=== PATIENT | male | born 1950 | race Caucasian/White ===

== ENCOUNTER 2019-04-21 13:36 | Emergency (ER) | payer MEDICARE ==
[2019-04-21] MEDS ORDERED: BABY ASPIRIN 81 MG CHEW PO ONE (13:46)
[2019-04-21] MEDS ORDERED: Zofran 4 MG/2 ML VIAL IV ONE (13:46)
[2019-04-21] MEDS ORDERED: SUBLIMAZE 100 MCG/2 ML IV ONE (13:47)
[2019-04-21] MEDS ORDERED: SUBLIMAZE 100 MCG/2 ML ONE (13:47)
[2019-04-21] MEDS ORDERED: Heparin 5000 UNITS/0.5 ML (HIGH RISK MED) IV ONE (13:49)
[2019-04-21] MEDS ORDERED: Zofran 4 MG/2 ML VIAL ONE (13:55)
--- NOTE | 2019-04-21 13:56 | ERPHSYRPT ---
- History of Present Illness Historian: patient Exam Limitations: no limitations Timing/Duration: today, hour(s) (2) Activities at Onset: none Quality: pressure, tightness Location: central, other Chest Pain Radiation: neck Severity of Pain-Max: severe Severity of Pain-Current: severe Modifying Factors: Improves With: nothing Associated Symptoms: nausea, No vomiting, No palpitations, No heartburn, No abdominal pain, No shortness of breath, No cough, No hurts to breathe, No diaphoresis, No chills, No fever, No fatigue, No weakness, No swelling/lump in chest, No syncope, No rash, No headache, No dizziness, No edema, No back pain Prior Chest Pain/Cardiac Workup: no prior chest pain, no prior cardiac workup Nitro Today/Relief: no nitro taken today Aspirin Treatment Today: no aspirin today - Review of Systems Constitutional: No Fever, No Chills Eyes: No Vision Changes, No Double Vision Ears, Nose, & Throat: No Mouth Pain, No Throat Swelling Respiratory: No Cough, No Dyspnea Cardiac: Chest Pain, No Edema, No Syncope Abdominal/Gastrointestinal: No Abdominal Pain, No Nausea, No Vomiting, No Diarrhea Genitourinary Symptoms: No Dysuria Musculoskeletal: No Back Pain, No Neck Pain Skin: No Rash Neurological: No Dizziness, No Focal Weakness, No Sensory Changes Psychological: No Symptoms Endocrine: No Symptoms Hematologic/Lymphatic: No Easy Bleeding, No Easy Bruising All Other Systems: Reviewed and Negative - Physical Exam General Appearance: no apparent distress, alert Eye Exam: PERRL/EOMI, eyes nml inspection Ears, Nose, Throat Exam: normal ENT inspection, moist mucous membranes Neck Exam: normal inspection, non-tender, supple, full range of motion Respiratory Exam: normal breath sounds, lungs clear, No respiratory distress, No diminished breath sounds, No accessory muscle use Cardiovascular Exam: regular rate/rhythm, normal heart sounds, normal peripheral pulses, No murmur Gastrointestinal/Abdomen Exam: soft, No tenderness, No mass, No pulsatile mass, No rebound Back Exam: normal inspection, No CVA tenderness, No vertebral tenderness Extremity Exam: normal inspection, normal range of motion Neurologic Exam: alert, oriented x 3, cooperative, normal mood/affect, sensation nml, No motor deficits Skin Exam: normal color, warm, dry Lymphatic Exam: No adenopathy SpO2 Interpretation: normal O2 Delivery: Room Air - Course Nursing assessment & vital signs reviewed: Yes EKG Interpreted by Me: RATE, ST Elev Rhythm Strip: Rate, Normal Sinus Rhythm Ordered Tests: Active Orders 24 hr Category Date Time Status Accucheck STAT Care 04/21/19 13:46 Active Rate Engineer STAT Care 04/21/19 13:47 Active EKG-ER Only STAT Care 04/21/19 13:46 Active IV Insertion STAT Care 04/21/19 13:46 Active IV Insertion-2nd Peripheral STAT Care 04/21/19 13:46 Active NPO (ED) STAT Care 04/21/19 13:46 Active Re-Check Vital Signs STAT Care 04/21/19 13:46 Active CHEST 1 VIEW (PORTABLE) Stat Exams 04/21/19 13:46 Ordered CBC W DIFF Stat Lab 04/21/19 13:46 Ordered CK-Creatinine Phosphokinase Stat Lab 04/21/19 13:46 Ordered CMP Stat Lab 04/21/19 13:46 Ordered PROTIME WITH INR Stat Lab 04/21/19 13:46 Ordered PTT Stat Lab 04/21/19 13:46 Ordered TROPONIN Q3H Lab 04/21/19 14:00 Ordered TROPONIN Q3H Lab 04/21/19 17:00 Ordered TROPONIN Q3H Lab 04/21/19 20:00 Ordered TROPONIN Q3H Lab 04/21/19 23:00 Ordered TROPONIN Q3H Lab 04/22/19 02:00 Ordered Medication Summary Generic Name Dose Route Start Last Admin Trade Name Freq PRN Reason Stop Dose Admin Heparin Sodium/Dextrose 250 mls @ 10 mls/hr 04/21/19 14:00 Heparin 25,000 Units/D5w 250ml Premix IV 05/21/19 13:59 .Q24H [place] Sodium Chloride 1,000 mls @ 100 mls/hr 04/21/19 14:00 Sodium Chloride 0.9% 1000 Ml IV 05/21/19 13:59 .Q10H [place] Heparin Sodium/Dextrose 25,000 units in 250 mls @ 10 mls/hr 04/21/19 14:00 Heparin 25,000 Units/D5w 250ml Premix IV 05/21/19 13:59 .Q24H [place] Discontinued Medications Generic Name Dose Route Start Last Admin Trade Name Freq PRN Reason Stop Dose Admin Aspirin 324 mg 04/21/19 13:46 Baby Aspirin 81 Mg Chew PO 04/21/19 13:47 STAT ONE Fentanyl Citrate 25 mcg 04/21/19 13:47 Sublimaze 100 Mcg/2 Ml IV 04/21/19 13:48 STAT ONE Fentanyl Citrate Confirm 04/21/19 13:47 Sublimaze 100 Mcg/2 Ml Administered 04/21/19 13:48 Dose 100 mcg .ROUTE .STK-MED ONE Heparin Sodium (Beef Lung) 5,000 unit 04/21/19 13:49 Heparin 5000 Units/0.5 Ml (High Risk Med) IV 04/21/19 13:50 STAT ONE Ondansetron HCl 4 mg 04/21/19 13:46 Zofran 4 Mg/2 Ml Vial IV 04/21/19 13:47 STAT ONE Ondansetron HCl Confirm 04/21/19 13:55 Zofran 4 Mg/2 Ml Vial Administered 04/21/19 13:56 Dose 4 mg .ROUTE .STK-MED ONE - Progress Progress: improved (Patient was transferred prior to lab results returning and chest x-ray being performed), unchanged Air Movement: good Blood Culture(s) Obtained: No Antibiotics given: No Discussed with Dr.: Other (Dr Ramos, ED attending at [facility] in [place], [place] at 13:43. Dr Ramos requested aspirin, IV bolus of Heparin and IV Heparin Drip at maximum bolus for his weight and drip per weight. @!3:53, Dr Ramos called back stating patient can go directly to the catheterization lab as the STEMI protocal was initiated at [facility].) Will see patient in: hospital (full admit) Counseled pt/family regarding: diagnosis, need for follow-up - Departure Departure Disposition: Transfer Clinical Impression: ST elevation myocardial infarction (STEMI) of inferior wall, initial episode of care Hypertension Qualifiers: Hypertension type: unspecified Qualified Code(s): I10 - Essential (primary) hypertension Condition: Serious Critical Care Time: Yes Critical Care Time(excluding separately billable procedures): Critical 30-74 mins Referrals: MARYAN TERRY [Primary Care Provider] - Plan of Treatment: Transfer to [facility]
[2019-04-21] MEDS ORDERED: Sodium Chloride 0.9% 1000 ML 1,000 ML IV SCH (14:00)
[2019-04-21] MEDS ORDERED: Heparin 25,000 units/D5W 250ML PREMIX 25,000 UNITS/250 ML BAG IV SCH ×2 (14:00)
[2019-04-21 14:23] LABS: INR 1.05 (0.8-3.0); PROTIME 11.9 SECONDS (8.83-12.87)
[2019-04-21 14:25] LABS: BASOPHIL % 0.4 % (0.0-0.4); Basophil (Absolute #) 0.05 (0-0.4); Eosinophil % 2.1 % (0.00-5.0); Eosinophil (Absolute #) 0.29 (0-0.5); Granulocyte Absolute (ANC) 6.71 (1.4-6.9); Granulocytes % 47.6 % (36.0-66.0); Hematocrit 50.6 % (42-50); Hemoglobin 16.5 gm/dl (12.5-18.0); Lymphocyte (Absolute #) 5.77 (1.0-4.6); Mean Cell Volume 97.5 fl (78-100); Mean Corpuscular Hemoglobin 31.8 pg (26-32); Mean Corpuscular Hgb Concent. 32.6 g/dl (32-36); Mean Platelet Volume 12.1 fl (6-9.5); Monocyte (Absolute #) 1.25 (0.0-1.3); Monocytes % 8.9 % (0.0-12.0); Platelet Count 33 K/mm3 (150-450); Red Blood Count 5.19 M/mm3 (4.1-5.6); Red Cell Distribution Width 14.1 % (11.5-14.0); White Blood Count 14.1 K/mm3 (4.0-10.5)
[2019-04-21 14:26] LABS: PTT 34.9 SECONDS (24.1-36.1)
[2019-04-21 14:27] VITALS: BP 167/85; PULSE 88; O2SAT 100
[2019-04-21 14:28] LABS: ALBUMIN 4.8 g/dL (3.5-5.0); ALKALINE PHOSPHATASE 40 U/L (38-126); ANION GAP 20.5 MEQ/L (5-15); BLOOD UREA NITROGEN 17 mg/dL (9-20); CHLORIDE 106 mmol/L (98-107); CK-Creatinine Phosphokinase 117 U/L (55-170); Calcium 9.8 mg/dL (8.4-10.2); Carbon Dioxide 20 mmol/L (22-30); Creatinine 1 1.14 mg/dL (0.66-1.25); Glucose 125 mg/dL (74-106); Potassium 3.8 mmol/L (3.5-5.1); SGOT/AST 24 U/L (17-59); SGPT/ALT 23 U/L (0-50); SODIUM 143 mmol/L (137-145); Total Protein 8.7 g/dL (6.3-8.2)
[2019-04-21 15:08] LABS: Slide Review 1 YES
== END 2019-04-21 14:00 | disposition short-term general hospital (02) ==
LOC: ED 13:36
DX: I21.3 ST elevation (STEMI) myocardial infarction of unspecified site (principal); I10 Essential (primary) hypertension
CPT/HCPCS: 36000; 36415; 80053; 82550; 84484; 85025; 85610; 85730; 93005; 93041; 96365; 96374; 96375; 99284; 99291; J1644; J2405; J3010; A9270-GY